=== PATIENT | female | born 1955 | race Caucasian/White ===

== ENCOUNTER 2019-12-06 10:46 | Emergency (ER) | payer MEDICARE, SELFPAY ==
[2019-12-06 11:33] VITALS: BP 101/51; PULSE 83; RESP 18; TEMP 37.5; O2SAT 100
--- NOTE | 2019-12-06 12:08 | ED.GENADULT ---
HPI - General Adult General Chief complaint: Upper Respiratory Infection Stated complaint: chest congestion Time Seen by Provider: 12/06/19 12:08 Source: patient and RN notes reviewed Mode of arrival: ambulatory Limitations: no limitations History of Present Illness HPI narrative: 64-year-old female presents with complains of dry cough and head congestion for 1 day. Ibuprofen and Tessalon Perles without relief. Symptoms increased over night with hoarseness. Lorena says she wants an anti-viral medication as instructed per the news to protect her from the Coronavirus. Lorena refuses any testing today saying she has no flu-like symptoms just following news recommendations. Constant dry cough/intermittent productive cough (green-yellow phlegm). No rhinorrhea. Nasal congestion. Mild sore throat. Exacerbating factors consist of coughing. No pain with swallowing. No high fevers, drooling, neck or throat swelling. No chest pain, wheezing, or shortness of breath. Denies nausea, vomiting, and abdominal pain. Tolerating liquids well. Remains active. Some parts of this dictation were generated by voice recognition software and may contain typographical and/or grammatical inaccuracies. Related Data Home Medications Medication Instructions Recorded Confirmed diclofenac sodium PO 12/06/19 gabapentin 12/06/19 Allergies Allergy/AdvReac Type Severity Reaction Status Date / Time venom-wasp Allergy Intermediate Swelling Verified 12/09/19 15:37 bee venom protein (honey bee) Allergy Unknown Swelling Verified 12/09/19 15:37 Iodinated Contrast Media Allergy Unknown SHORTNESS Verified 12/06/19 11:38 OF BREATH ioversol Allergy Unknown swelling Verified 12/09/19 15:37 itching mold Allergy Unknown Sneezing Verified 12/09/19 15:37 nickel Allergy Unknown unsure Verified 12/09/19 15:37 Penicillins Allergy Unknown Unknown Verified 12/06/19 11:38 RED WINE Allergy Mild oraL Uncoded 12/09/19 15:37 sensitivity BUTORPHANOL TARTRATE Allergy Unknown SHORTNESS Uncoded 12/06/19 11:38 OF BREATH Review of Systems Review of Systems: Narrative: CONSTITUTIONAL: Denies fever, sweats, chills, fatigue. EYES: Denies visual changes, redness, discharge. ENT: Complains of congestion, sore throat, hoarseness. Denies rhinorrhea, otalgia. CARDIOVASCULAR: Denies chest pain, palpitations, edema. RESPIRATORY: Denies dyspnea, wheezing. Complains of dry cough, intermittent productive cough. GASTROINTESTINAL: Denies abdominal pain, nausea, vomiting, diarrhea. GENITOURINARY: Denies dysuria, hematuria, abnormal discharge. SKIN: Denies rash or itching. MUSCULOSKELETAL: Denies acute back pain, joint pain, or myalgia. NEUROLOGIC: Denies numbness or focal weakness. PSYCHIATRIC: Denies anxiety or depression. All other systems reviewed are negative, except as documented in HPI and below. [facility] Past Medical History Medical History (Updated 12/09/19 @ 15:48 by Chelsea Gil CMA) Arthritis Cardiac arrhythmia History of Mtz's palsy Mitral valve prolapse Ovarian cyst Primary osteoarthritis of left hip Surgical History Surgical History History of cryosurgery History of lumpectomy of left breast Family History Family History Mother Family history of osteoporosis Family history of malignant neoplasm of ovary Father Cerebrovascular accident Family history of arthritis Family history of atrial fibrillation Other Acute myocardial infarction Asthma Diabetes mellitus Family history of chronic obstructive pulmonary disease Social History Social History (Updated 12/09/19 @ 15:42 by Chelsea Gil CMA) Smoking status: Never smoker Second hand tobacco smoke exposure: No Alcohol intake: current Alcohol use details: once a month Substance use: never Living arrangements: with family Occupation/Education: r
== END 2019-12-06 12:30 | disposition home or self-care (01) ==
PROVIDERS: Emergency Provider Nurse Practitioner Family
DX: J06.9 Acute upper respiratory infection, unspecified (principal)
CPT/HCPCS: 99213; G0463

== ENCOUNTER → 2019-12-13 12:11 | Outpatient (CLI) | payer MEDICARE, SELFPAY ==
--- NOTE | ~2019-12-13 | XR_ITS ---
EXAMINATION: SACRUM/COCCYX DATE: 12/13/2019 12:33 INDICATION: Low back pain TECHNIQUE: Three views sacrum/coccyx FINDINGS: No prior studies for comparison. There is no displaced fracture of the sacrum. The coccyx demonstrates overall normal morphology with out acute angulation.There are degenerative changes of the hips, partially visualized. There is ostei tis pubis. IMPRESSION: 1. No acute displaced osseous abnormality of the sacrum. Suspicion for occult or nondisplaced sacral fracture can either be evaluated with CT or MRI. 2. Grossly normal morphology to the coccyx without acute angulation. However, due to the wide range of normal variation of the coccyx, acute injury would be best evaluated by clinical examination and patient's symptoms. Reviewed, dictated and finalized at location A.
--- NOTE | ~2019-12-13 | XR_ITS ---
EXAMINATION: XR lumbar spine 2-3V EXAM DATE: 12/13/2019 12:31 INDICATION: Low back pain with pain radiating down left leg posteriorly, symptoms intermittent. TECHNIQUE: Lumber spine frontal, lateral, lateral L5-S1 projections for interpretation. There is no prior study for comparison. FINDINGS: There are no acute fractures identified. Sacrum, sacroiliac joints, sacral arcuate lines are intact. Mild lumbar levoscoliosis. There is moderate lumbar facet arthropathy. The vertebral bodi es are aligned in the AP dimension. There is mild to moderate disc lumbar disc disease. There is 2-3 mm retrolisthesis L2 on L3 and L3 on L4. IMPRESSION: 1. No acute lumbar findings. 2. Moderate facet arthropathy, mild to moderate disc disease. Reviewed, dictated and finalized at location A.
== END ==
PROVIDERS: PCP Family Medicine; Visit Provider Family Medicine
DX: M54.16 Radiculopathy, lumbar region (principal); M53.3 Sacrococcygeal disorders, not elsewhere classified; M12.88 Other specific arthropathies, not elsewhere classified, other specified site
CPT/HCPCS: 72100; 72220

== ENCOUNTER → 2020-12-08 11:50 | Outpatient (CLI) | payer MEDICARE, SELFPAY ==
--- NOTE | ~2020-12-08 | XR_ITS ---
EXAMINATION: XR hip BI 2V w AP pelvis DATE: 12/08/2020 12:52 INDICATION: Chronic bilateral hip pain TECHNIQUE: Anteroposterior view of the pelvis and anteroposterior and frog-leg lateral views of the l eft hip and anteroposterior and frog-leg lateral views of the right hip and were obtained. COMPARISON: None. FINDINGS: Normal alignment at the bilateral hips. No fracture or suspected avascular necrosis. Osteoarthritis a t the bilateral hips, moderate to severe on the left and mild on the right. Minimal bilateral sacroil iac osteoarthritis. Numerous phleboliths in the left hemipelvis. IMPRESSION: 1. Mild right and moderate to severe left hip osteoarthritis. Reviewed, dictated and finalized at location B. G[facility] LABOR RELATIONS
--- NOTE | ~2020-12-08 | US_ITS ---
EXAMINATION: US thyroid DATE: 12/08/2020 12:11 INDICATION: Goiter. TECHNIQUE: Multiple ultrasound images of the thyroid were obtained. COMPARISON: None. FINDINGS: The right thyroid lobe measures 4.2 x 1.4 x 1.5 cm. The left thyroid lobe measures 3.8 x 1.5 x 1.4 c m. There are multiple nodules in the thyroid measuring 4 mm or less. In the left thyroid lobe, there is a 6 mm solid, hypoechoic, [id number]-[id number] nodule with ill-defined margin without echogenic foci ( TI-RADS TR4). IMPRESSION: 1. Small thyroid nodules, likely not clinically significant. No follow-up is needed. Reviewed, dictated and finalized at location A. APPLICATION ARCHITECT IMPRESSION: 1. Small thyroid nodules, likely not clinically significant. No follow-up is ne eded.
== END ==
PROVIDERS: PCP Family Medicine; Visit Provider Family Medicine
DX: E01.0 Iodine-deficiency related diffuse (endemic) goiter (principal); M16.0 Bilateral primary osteoarthritis of hip
CPT/HCPCS: 73521; 76536

== ENCOUNTER → 2021-01-22 01:44 | Outpatient (CLI) | payer MEDICARE, SELFPAY ==
[2021-01-22 19:04] LABS: SARS-CoV-2 RNA PCR Negative
== END ==
PROVIDERS: PCP Family Medicine; Visit Provider Internal Medicine Gastroenterology
DX: Z01.812 Encounter for preprocedural laboratory examination (principal); Z20.822 Contact with and (suspected) exposure to COVID-19
CPT/HCPCS: C9803; U0003; U0005

== ENCOUNTER 2021-01-25 02:05 | Day surgery (SDC) | payer MEDICARE, SELFPAY ==
[2021-01-18 10:23] VITALS: BMI 25.7
[2021-01-25 08:49] VITALS: BP 118/73; PULSE 101; RESP 18; TEMP 36.4; O2SAT 97; BMI 26.6
[2021-01-25] MEDS: LACTATED RINGERS 1,000 ML 150 ML IV CONT (09:01)
--- NOTE | 2021-01-25 09:10 | WPDANESEPPF ---
Anes - Initial Pre Proc Eval Procedure: Operation Date: 01/25/21 09:45 Proposed Procedures p Screening Colonoscopy - Car Avalos DO Date/Time: 01/25/21 09:10 Surgeon: Car Avalos DO Pre Op Diagnosis: neoplasm screening Patient Data Age: 65 Gender: F Height: 5 ft 5 in Weight: 72.8 kg Last Vital Signs Temp 36.4 C L 01/25/21 08:49 Pulse 101 H 01/25/21 08:49 Resp 18 01/25/21 08:49 BP 118/73 01/25/21 08:49 Pulse Ox 97 01/25/21 08:49 Allergies Allergy/AdvReac Type Severity Reaction Status Date / Time bee venom protein (honey bee) Allergy Severe Swelling Verified 01/18/21 10:28 Iodinated Contrast Media Allergy Severe Anaphylactic Verified 01/25/21 08:49 Shock ioversol Allergy Severe Anaphylactic Verified 01/25/21 08:49 Shock Penicillins Allergy Severe Anaphylactic Verified 01/25/21 08:49 Shock venom-wasp Allergy Severe Swelling Verified 01/25/21 08:49 mold Allergy Intermediate Sneezing Verified 01/25/21 08:49 nickel Allergy Intermediate Rash Verified 01/25/21 08:49 propofol Allergy Chest Pain Verified 01/25/21 08:49 BUTORPHANOL TARTRATE Allergy Severe SHORTNESS Uncoded 01/25/21 08:49 OF BREATH RED WINE Allergy Mild oraL Uncoded 01/25/21 08:49 sensitivity Home Medications Medication Instructions Recorded Confirmed Type diclofenac sodium 75 mg PO Q12H PRN 12/06/19 01/25/21 History cholecalciferol (vitamin D3) 25 25 mcg PO DAILY 11/29/20 01/25/21 History mcg (1,000 unit) capsule multivitamin 1 tablet PO DAILY 11/29/20 01/25/21 History Tumeric 1 cap PO DAILY 01/18/21 01/25/21 History calcium carbonate [Calcium 500] 500 mg PO DAILY 01/18/21 01/25/21 History gabapentin 100 mg PO TID PRN 01/18/21 01/25/21 History lactase [Lactaid] 5,000 unit PO PRN PRN 01/18/21 01/25/21 History loratadine [Claritin] 10 mg PO DAILY PRN 01/18/21 01/25/21 History plant stanol teodora [Cholest Off] 450 mg PO DAILY 01/18/21 01/25/21 History zinc 50 mg PO DAILY 01/18/21 01/25/21 History Patient hx anesthesia problems: none Family hx anesthesia problems: none [facility] Past Medical History Medical History Arthritis Cardiac arrhythmia History of Mtz's palsy Mitral valve prolapse Ovarian cyst Primary osteoarthritis of left hip Surgical History Surgical History History of cryosurgery History of lumpectomy of left breast Family History Family History Mother Family history of osteoporosis Family history of malignant neoplasm of ovary Father Cerebrovascular accident Family history of arthritis Family history of atrial fibrillation Other Acute myocardial infarction Asthma Diabetes mellitus Family history of chronic obstructive pulmonary disease Social History Social History Smoking status: Never smoker Second hand tobacco smoke exposure: No Alcohol intake: current Drinks per week: 1 Substance use: never Substance use type: does not use Living arrangements: with family Gender identity (if verbalized by the patient): Female Spiritual care concerns: No Agree to blood products: Yes Anes - Eval Final PreProcedure Day of Procedure 01/25/21 09:10 Patient weight: overweight Heart: regular rate and rhythm Lungs: clear to auscultation Airway: Mallampati scale class II Neurological: alert and oriented Last oral intake: >/= 8 hours ASA classification: III Emergent: no Anesthetic plan: proceed Anesthesia type and monitoring: general (will use etomidate due to Pt's insistence she had chest tightness 7 years ago during propofol induction) GIVS and standard monitoring Informed Consent: The patient's anesthetic plan and its attendant risks and benefits were discussed with the patient/family/POA. Questions were solicited and answers provided to the
--- NOTE | 2021-01-25 09:18 | WPDGICN ---
GI Consult Note Consult date/time: 01/25/21 09:18 HPI: Reason for visit colonoscopy. This very pleasant lady seen in consultation request of the primary care physician. Impression: Screening Colonoscopy. The patient has a family history of colon cancer. Mtz's palsy. Degenerative joint disease. Mitral valve prolapse. Recommendation: Colonoscopy. History: This very pleasant lady has a negative GI review systems. She is here for screening colonoscopy. She has a family history colon cancer. Physical examination: General: very pleasant patient in no acute distress. HEENT: Head was normocephalic sclerae is clear mouth without masses neck was supple. Heart: Rate rhythm regular without S3 or S4. Lungs: CTA. Abdomen: Soft with no guarding or rigidity. Bowel sounds were active. Neurologic: Cranial nerves 2 through 12 intact. No focal defects. No clonus. Musculoskeletal system: Revealed no joint tenderness or swelling no muscle atrophy. Extremities: Reveal no significant edema. Skin: Warm and dry with normal turgor. Mental status: intact. Patient is alert and oriented. Review of Systems Review of Systems: All systems reviewed & are unremarkable except as noted in HPI and below PMFSH Past Medical History Medical History Arthritis Cardiac arrhythmia History of Mtz's palsy Mitral valve prolapse Ovarian cyst Primary osteoarthritis of left hip Surgical History Surgical History History of cryosurgery History of lumpectomy of left breast Family History Family History Mother Family history of osteoporosis Family history of malignant neoplasm of ovary Father Cerebrovascular accident Family history of arthritis Family history of atrial fibrillation Other Acute myocardial infarction Asthma Diabetes mellitus Family history of chronic obstructive pulmonary disease Social History Social History Smoking status: Never smoker Second hand tobacco smoke exposure: No Alcohol intake: current Drinks per week: 1 Substance use: never Substance use type: does not use Living arrangements: with family Gender identity (if verbalized by the patient): Female Spiritual care concerns: No Agree to blood products: Yes Meds Home Medications and Allergies Home Medications Medication Instructions Recorded Confirmed Type diclofenac sodium 75 mg PO Q12H PRN 12/06/19 01/25/21 History cholecalciferol (vitamin D3) 25 25 mcg PO DAILY 11/29/20 01/25/21 History mcg (1,000 unit) capsule multivitamin 1 tablet PO DAILY 11/29/20 01/25/21 History Tumeric 1 cap PO DAILY 01/18/21 01/25/21 History calcium carbonate [Calcium 500] 500 mg PO DAILY 01/18/21 01/25/21 History gabapentin 100 mg PO TID PRN 01/18/21 01/25/21 History lactase [Lactaid] 5,000 unit PO PRN PRN 01/18/21 01/25/21 History loratadine [Claritin] 10 mg PO DAILY PRN 01/18/21 01/25/21 History plant stanol teodora [Cholest Off] 450 mg PO DAILY 01/18/21 01/25/21 History zinc 50 mg PO DAILY 01/18/21 01/25/21 History Allergies Allergy/AdvReac Type Severity Reaction Status Date / Time bee venom protein (honey bee) Allergy Severe Swelling Verified 01/18/21 10:28 Iodinated Contrast Media Allergy Severe Anaphylactic Verified 01/25/21 08:49 Shock ioversol Allergy Severe Anaphylactic Verified 01/25/21 08:49 Shock Penicillins Allergy Severe Anaphylactic Verified 01/25/21 08:49 Shock venom-wasp Allergy Severe Swelling Verified 01/25/21 08:49 mold Allergy Intermediate Sneezing Verified 01/25/21 08:49 nickel Allergy Intermediate Rash Verified 01/25/21 08:49 propofol Allergy Chest Pain Verified 01/25/21 08:49 BUTORPHANOL TARTRATE Allergy Severe SHORTNESS Uncoded 01/25/21 08:49 OF BREATH RED WINE A
[2021-01-25 09:53] VITALS: BP 135/89; PULSE 81; RESP 23; O2SAT 100
[2021-01-25 10:03] VITALS: BP 122/69; PULSE 70; RESP 19; O2SAT 100
[2021-01-25 10:13] VITALS: BP 119/77; PULSE 67; RESP 26; O2SAT 100
--- NOTE | 2021-01-25 10:14 | SUR.PHASEII ---
PT C/O NUMBNESS AND TINGLING THAT WAS DISCUSSED NORMAL SIDE EFFECTS ETOMIDATE, DR MUNOZ WAS NOTIFIED AND SPOKE WITH THE PT AND SPOUSE, REASSURING THEM THAT WILL RESIDE
[2021-01-25 10:23] VITALS: BP 128/69; PULSE 57; RESP 24; O2SAT 100
[2021-01-25 10:33] VITALS: BP 121/65; PULSE 54; RESP 17; O2SAT 100
== END 2021-01-25 10:45 | disposition home or self-care (01) ==
PROVIDERS: PCP Family Medicine; Visit Provider Internal Medicine Gastroenterology
PROC: 0DJD8ZZ Inspection of Lower Intestinal Tract, Via Natural or Artificial Opening Endoscopic (ICD-10-PCS; CPT 45378; principal; 2021-01-25 09:45)
DX: Z12.11 Encounter for screening for malignant neoplasm of colon (principal); Z80.0 Family history of malignant neoplasm of digestive organs; I34.1 Nonrheumatic mitral (valve) prolapse; M19.90 Unspecified osteoarthritis, unspecified site
CPT/HCPCS: G0105; C9803; J7120; U0003; U0005

== ENCOUNTER → 2022-01-22 11:11 | Outpatient (CLI) | payer MEDICARE, SELFPAY ==
--- NOTE | ~2022-01-22 | US_ITS ---
EXAMINATION: US thyroid DATE: 01/22/2022 11:29 INDICATION: Thyroid nodule. Follow-up. TECHNIQUE: Multiple ultrasound images of the thyroid were obtained. COMPARISON: Thyroid ultrasound 12/08/2020 FINDINGS: The right thyroid lobe measures 3.8 x 1.7 x 1.9 cm. The left thyroid lobe measures 4.8 x 1.7 x 1.4 c m. In the left thyroid lobe, there is a 5 mm solid, hypoechoic, jqgid-[id number]-lhqr nodule with smooth m argin without echogenic foci (TI-RADS TR4). There are multiple nodules in the thyroid measuring up to 4 mm. IMPRESSION: 1. Small thyroid nodules, likely not clinically significant. No follow-up is needed. Reviewed, dictated and finalized at location B. IMPRESSION: 1. Small thyroid nodules, likely not clinically significant. No follow-up is ne eded.
== END ==
PROVIDERS: PCP Family Medicine; Visit Provider Family Medicine
DX: E04.2 Nontoxic multinodular goiter (principal)
CPT/HCPCS: 76536

== ENCOUNTER 2022-02-11 12:46 | Outpatient (CLI) | payer MEDICARE, SELFPAY ==
--- NOTE | 2022-02-11 13:07 | ECHO_ITS ---
Patient Info Name: Lorena Sommer Age: 66 years : 1955 Gender: Female Ht: 65 in Wt: 155 lbs BSA: 1.81 m2 HR: 93 bpm BP: 132 / 84 mmHg Heart Rhythm: Sinus Rhythm Exam Date: 02/11/2022 1:24 PM Exam Location: [facility] Patient Status: Outpatient Admit Date: 02/11/2022 Staff Ordering Physician: Ileana Flores DO Heating And Refrigeration Inspector: Edis Shankar RDCS, RT Attending Provider: Ileana Flores DO Referring Physician: Mark FUNES; Exam Type: CA echo doppler color flow Study Info Indications I34.1 - Nonrheumatic mitral (valve) prolapse Complete two-dimensional, color flow and Doppler transthoracic echocardiogram is performed. Strain analysis performed. Summary 1. Complete two-dimensional, color flow and Doppler transthoracic echocardiogram is performed. 2. Left ventricular chamber dimension is normal. 3. Left ventricular systolic function is normal, estimated at 60-65%. 4. There is no increased left ventricular wall thickness. 5. The left ventricular diastolic function is grade I diastolic dysfunction. 6. Global longitudinal strain is normal at -23 %. 7. The mitral valve has very mild bileaflet prolapse. 8. There is no mitral valve regurgitation. 9. There is no aortic valve stenosis. 10. There is mild tricuspid valve regurgitation. 11. No pulmonary hypertension, estimated pulmonary arterial systolic pressure is 28 mmHg. Left Ventricle Left ventricular chamber dimension is normal. Left ventricular systolic function is normal, estimated at 60-65%. There is no increased left ventricular wall thickness. The left ventricular diastolic function is grade I diastolic dysfunction. Global longitudinal strain is normal at -23 %. Right Ventricle Right ventricular chamber dimension is normal. Right ventricular systolic function is normal. Left Atria Left atrial chamber dimension is normal. Right Atria Right atrial chamber dimension is normal. Aortic Valve The aortic valve is not well visualized. There is no aortic valve stenosis. There is no aortic valve regurgitation. Pulmonic Valve The pulmonic valve is not well visualized. Mitral Valve The mitral valve has very mild bileaflet prolapse. There is no mitral valve regurgitation. The mitral valve annulus is mildly calcified. Tricuspid Valve The tricuspid valve leaflets are normal. There is mild tricuspid valve regurgitation. No pulmonary hypertension, estimated pulmonary arterial systolic pressure is 28 mmHg. Pericardium/Pleural The pericardium appears normal. There is small pericardial effusion. Inferior Vena Cava Normal inferior vena cava with >50% collapse upon inspiration consistent with normal right atrial pressure, 5 mmHg. Aorta The aortic root size at the sinus of Valsalva is normal. Left Ventricular Outflow Tract Name Value Normal LVOT 2D LVOT Diameter 1.9 cm LVOT Doppler LVOT Peak Gradient 4 mmHg LVOT Mean Gradient 2 mmHg LVOT VTI 23 cm LVOT VTI/AV VTI Ratio 1.[address]
== END 2022-02-11 12:47 | disposition home or self-care (01) ==
PROVIDERS: PCP Family Medicine; Visit Provider Family Medicine
DX: I34.1 Nonrheumatic mitral (valve) prolapse (principal); I36.1 Nonrheumatic tricuspid (valve) insufficiency
CPT/HCPCS: 93306

== ENCOUNTER → 2022-02-19 13:41 | Outpatient (CLI) | payer MEDICARE, SELFPAY ==
--- NOTE | ~2022-02-19 | DEXA_ITS ---
Bone Density Report Name: FARA IGLESIAS Age: 66 Sex: Female Ethnicity: White Date of : 1955 Indication: postmenopausal; screening for osteoporosis; Referring Provider: Sneha Owusu Study: Bone densitometry was performed. Exam Date: February 19, 2022 Accession number: [id number] Bone Density: Region BMD T-score Z-score Classification AP Spine (L1-L4) 0.968 -0.7 1.2 Normal Femoral Neck (Left) 0.739 -1.0 0.6 Normal Total Hip (Left) 0.843 -0.8 0.5 Normal Femoral Neck (Right) 0.759 -0.8 0.8 Normal Total Hip (Right) 0.841 -0.8 0.5 Normal Total Hip Mean 0.842 -0.8 0.5 Normal World Health Organization criteria for BMD impression classify patients as: Normal (T-score at or above -1.0), Osteopenia (T-score between -1.0 and -2.5), or Osteoporosis (T-score at or below -2.5). 10-year Fracture Risk: FRAX not reported because: All T-scores for Spine Total, Hip Total, Femoral Neck at or above -1.0 Previous Exams: Region Exam Age BMD T-score BMD Change BMD Change Date g/cm2 vs Baseline vs Previous AP Spine(L1-L4) 02/19/2022 66 0.968 -0.7 -0.083* -0.031* 12/28/2018 63 0.998 -0.4 -0.052* 0.020 06/30/2014 58 0.978 -0.6 -0.072* 0.007 08/24/2013 57 0.972 -0.7 -0.079* 0.005 01/31/2011 55 0.966 -0.7 -0.084* -0.084* 02/09/2007 51 1.051 0.0 Total Hip(Left) 02/19/2022 66 0.843 -0.8 -0.048* -0.006 12/28/2018 63 0.849 -0.8 -0.042* -0.046* 06/30/2014 58 0.895 -0.4 0.004 0.001 08/24/2013 57 0.894 -0.4 0.003 0.024 01/31/2011 55 0.870 -0.6 -0.021 -0.021 02/09/2007 51 0.891 -0.4 Total Hip(Right) 02/19/2022 66 0.841 -0.8 -0.005 0.019 12/28/2018 63 0.822 -1.0 -0.024 -0.040* 06/30/2014 58 0.862 -0.7 0.017 -0.023 08/24/2013 57 0.885 -0.5 0.039* 0.036* 01/31/2011 55 0.849 -0.8 0.004 0.004 02/09/2007 51 0.846 -0.8 *Denotes significance at 95% confidence level, LSC for AP Spine = 0.022 g/cm2, LSC for Total Hip = 0.027 g/cm2 Clinical Information Provided by Patient: Has used the following medications: Vitamin D, Calcium, MTV Patient maximum height was 65.75 Menopause Age: 51 Does not regularly consume dairy products Drinks caffeinated beverages Onset of menses at age 12 Number of children
== END ==
PROVIDERS: PCP Family Medicine; Visit Provider Obstetrics & Gynecology
DX: M85.88 Other specified disorders of bone density and structure, other site (principal)
CPT/HCPCS: 77080

== ENCOUNTER → 2023-03-27 13:26 | Outpatient (CLI) | payer MEDICARE, SELFPAY ==
--- NOTE | ~2023-03-27 | US_ITS ---
US thyroid INDICATION: Nontoxic thyroid nodule TECHNIQUE: Real-time sonographic images of the thyroid gland were obtained. COMPARISON: No prior studies for comparison. FINDINGS: The right thyroid lobe measures 4 x 1.4 x 1.5 cm. The left thyroid lobe measures 4.7 x 1.3 x 1.6 cm. There are small bilateral thyroid nodules, largest on the right measuring 4 mm in largest on the left measuring 6 mm. No significant change from prior examination. Normal vascular flow is pre sent. IMPRESSION: 1. Stable bilateral thyroid nodules measuring 6 mm or less, likely benign. No suspicious new or enla rging masses in either lobe to suggest malignancy. Reviewed, dictated and finalized at location L. IMPRESSION: 1. Stable bilateral thyroid nodules measuring 6 mm or less, likely benign. No suspicious new or enlarging masses in either lobe to suggest malignancy.
== END ==
PROVIDERS: PCP Family Medicine; Visit Provider Family Medicine
DX: E04.2 Nontoxic multinodular goiter (principal)
CPT/HCPCS: 76536

== ENCOUNTER 2023-08-07 19:33 | Emergency (ER) | payer MEDICARE, SELFPAY ==
[2023-08-07 19:49] VITALS: BP 124/40; PULSE 79; RESP 18; TEMP 36.5; O2SAT 97
--- NOTE | 2023-08-07 20:08 | ED.EAR ---
HPI - Ear Problem General Chief complaint: Ear Stated complaint: bilateral ear pain and pressure,cough Time Seen by Provider: 08/07/23 19:55 Source: patient, RN notes reviewed and old records reviewed Mode of arrival: ambulatory Limitations: no limitations History of Present Illness HPI Narrative: 67 year old female who presents to [facility] care with complaints of bilateral ear pain with pressure and cough for the past 5 days with right ear of greater discomfort. 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 Patient reports no fevers, chills or body aches, no sore throat, denies any nausea or vomiting or diarrhea,Torres nt reports that she has taken some Diclofenac for her discomfort. MD Complaint: ear pain (bilateral with right of greater itensity) Location: bilateral Severity: moderate Discharge from ear: Reports no Treatment prior to arrival: other (Diclofenac) Related Data Home Medications Medication Instructions Recorded Confirmed cholecalciferol (vitamin D3) 25 25 mcg PO DAILY 11/29/20 08/07/23 mcg (1,000 unit) capsule multivitamin 1 tablet PO DAILY 11/29/20 08/07/23 Tumeric 1 cap PO DAILY 01/18/21 08/07/23 calcium carbonate 500 mg calcium 500 mg PO DAILY 01/18/21 08/07/23 (1,250 mg) chewable tablet (Calcium 500) loratadine 10 mg tablet (Claritin) 10 mg PO DAILY PRN Allergy Symptoms 01/18/21 06/18/22 zinc 50 mg tablet 50 mg PO DAILY 01/18/21 08/07/23 Allergies Allergy/AdvReac Type Severity Reaction Status Date / Time bee venom protein (honey bee) Allergy Severe Swelling Verified 08/07/23 19:56 Iodinated Contrast Media Allergy Severe Anaphylactic Verified 08/07/23 19:56 Shock ioversol Allergy Severe Anaphylactic Verified 08/07/23 19:56 Shock Penicillins Allergy Severe Anaphylactic Verified 08/07/23 19:56 Shock venom-wasp Allergy Severe Swelling Verified 08/07/23 19:56 mold Allergy Intermediate Sneezing Verified 08/07/23 19:56 nickel Allergy Intermediate Rash Verified 08/07/23 19:56 propofol Allergy Chest Pain Verified 08/07/23 19:56 BUTORPHANOL TARTRATE Allergy Severe SHORTNESS Uncoded 04/10/23 15:08 OF BREATH RED WINE Allergy Mild oraL Uncoded 04/10/23 15:08 sensitivity Review of Systems Review of Systems: CONSTITUTIONAL: Denies malaise, chills, sweats, or fever. EYES: Denies visual changes, redness, or discharge. ENT: Reports rhinorrhea, congestion, sinus pain, bilateral otalgia and no sore throat. CARDIOVASCULAR: Denies chest pain, palpitations, or edema. RESPIRATORY: Reports cough.? Denies dyspnea. GASTROINTESTINAL: Denies abdominal pain, nausea, vomiting, diarrhea SKIN: Denies rash or itching. MUSCULOSKELETAL: Denies myalgia. NEUROLOGIC: Reports headache. All systems reviewed & are unremarkable except as noted in HPI and below PMFSH Past Medical History Medical History (Updated 08/08/23 @ 12:40 by Diandra Villarreal NP) Arthritis Cardiac arrhythmia History of Mtz's palsy Mitral valve prolapse Ovarian cyst Primary osteoarthritis of left hip Surgical History Surgical History History of cryosurgery History of lumpectomy of left breast Family History Family History Mother Family history of osteoporosis Family history of malignant neoplasm of ovary Father Cerebrovascular accident Family history of arthritis Family history of atrial fibrillation Other Acute myocardial infarction Asthma Diabetes mellitus Family history of chronic obstructive pulmonary disease Social History Social History Smoking status: Never smoker Second hand tobacco smoke exposure: No Alcohol intake: current Drinks per week: 1 Alcohol use details: white wine
== END 2023-08-07 20:20 | disposition home or self-care (01) ==
PROVIDERS: Emergency Provider Registered Nurse; PCP Family Medicine
DX: H66.91 Otitis media, unspecified, right ear (principal); R05.9 Cough, unspecified; Z79.899 Other long term (current) drug therapy
CPT/HCPCS: 99213; G0463

== ENCOUNTER 2024-03-09 14:35 | Emergency (ER) | payer MEDICARE, SELFPAY ==
[2024-03-09 14:45] VITALS: BP 100/66; PULSE 106; RESP 16; TEMP 36.8; O2SAT 97
--- NOTE | 2024-03-09 15:01 | ED.FEMALEGU ---
HPI - Female Genitourinary General Chief complaint: Urogenital-Female Stated complaint: uti symptoms Time Seen by Provider: 03/09/24 14:57 Source: patient and RN notes reviewed Mode of arrival: ambulatory Limitations: no limitations History of Present Illness HPI Narrative: 68-year-old female presents for dysuria, frequency that started yesterday. She denies fever, body aches, chills, sweats, nausea, vomiting, back pain, abdominal she reports history of UTIs but she has had 1 in a long time. MD elicited complaint: UTI Related Data Home Medications Medication Instructions Recorded Confirmed cholecalciferol (vitamin D3) 25 25 mcg PO DAILY 11/29/20 03/09/24 mcg (1,000 unit) capsule multivitamin 1 tablet PO DAILY 11/29/20 03/09/24 Tumeric 1 cap PO DAILY 01/18/21 03/09/24 calcium carbonate (Calcium 500) 500 mg PO DAILY 01/18/21 03/09/24 loratadine 10 mg tablet (Claritin) 10 mg PO DAILY PRN Allergy Symptoms 01/18/21 03/09/24 zinc 50 mg tablet 50 mg PO DAILY 01/18/21 03/09/24 diclofenac sodium 75 mg 75 mg PO BID PRN arthritis 03/09/24 03/09/24 tablet,delayed release gabapentin 100 mg tablet 100 mg PO PRN PRN sciatica 03/09/24 03/09/24 Allergies Allergy/AdvReac Type Severity Reaction Status Date / Time Iodinated Contrast Media Allergy Severe Anaphylactic Verified 03/09/24 14:39 Shock ioversol Allergy Severe Anaphylactic Verified 03/09/24 14:39 Shock Penicillins Allergy Severe Anaphylactic Verified 03/09/24 14:39 Shock propofol AdvReac Severe Chest Pain Verified 03/09/24 14:39 bee venom protein (honey bee) AdvReac Intermediate Swelling Verified 03/09/24 14:39 venom-wasp AdvReac Intermediate Swelling Verified 03/09/24 14:39 mold AdvReac Mild Sneezing Verified 03/09/24 14:39 nickel AdvReac Mild Rash Verified 03/09/24 14:39 BUTORPHANOL TARTRATE AdvReac Severe SHORTNESS Uncoded 03/09/24 14:39 OF BREATH RED WINE AdvReac Mild oraL Uncoded 03/09/24 14:39 sensitivity Review of Systems Review of Systems: CONSTITUTIONAL: Denies malaise, chills, sweats, or fever. CARDIOVASCULAR: Denies chest pain, palpitations, or edema. RESPIRATORY: Denies cough or dyspnea. GASTROINTESTINAL: Denies abdominal pain, nausea, vomiting, diarrhea GENITOURINARY: Reports dysuria, frequency, urgency. Denies flank pain or hematuria. SKIN: Denies rash or itching. MUSCULOSKELETAL: Denies back pain or myalgia. All systems reviewed & are unremarkable except as noted in HPI and below PMFSH Past Medical History Medical History (Updated 03/09/24 @ 15:04 by Sugar Marcos NP) Arthritis Cardiac arrhythmia History of Mtz's palsy Mitral valve prolapse Ovarian cyst Primary osteoarthritis of left hip URI (upper respiratory infection) Surgical History Surgical History History of cryosurgery History of lumpectomy of left breast Family History Family History Mother Family history of osteoporosis Family history of malignant neoplasm of ovary Father Cerebrovascular accident Family history of arthritis Family history of atrial fibrillation Other Acute myocardial infarction Asthma Diabetes mellitus Family history of chronic obstructive pulmonary disease Social History Social History (Updated 10/15/23 @ 13:00 by Chelo Escudero CMA) Smoking status: Never smoker Second hand tobacco smoke exposure: No Alcohol intake: current Drinks per week: 1 Alcohol use details: white wine Substance use: never Substance use type: does not use Do You Feel Safe in your Home?: Yes Lack of Transportation: No Lack of Food: Never True Current Housing: I Have Housing Concerned About Future Housing: No Difficulty Paying Gas/Electric Bills: No Difficulty Paying for Meds: No Currently Unemployed: No Education: Don't Know Difficulty w/ Childcare or Family Care: No Living arrangements: with f
== END 2024-03-09 15:14 | disposition home or self-care (01) ==
PROVIDERS: Emergency Provider Nurse Practitioner; PCP Family Medicine
DX: N39.0 Urinary tract infection, site not specified (principal); B96.20 Unspecified Escherichia coli [E. coli] as the cause of diseases classified elsewhere; M19.90 Unspecified osteoarthritis, unspecified site; I34.1 Nonrheumatic mitral (valve) prolapse; M16.12 Unilateral primary osteoarthritis, left hip
CPT/HCPCS: 81003; 87077; 87086; 87088; 87186; 99213; G0463

== ENCOUNTER 2024-05-18 10:55 | Outpatient (CLI) | payer MEDICARE, SELFPAY ==
--- NOTE | ~2024-05-18 | US_ITS ---
EXAMINATION: US thyroid DATE: 05/18/2024 11:19 INDICATION: Iron deficiency related diffuse endemic goiter. TECHNIQUE: Multiple ultrasound images of the thyroid were obtained. COMPARISON: Thyroid ultrasound 03/27/2023 FINDINGS: The right thyroid lobe measures 4.0 x 1.2 x 1.5 cm. The left thyroid lobe measures 5.0 x 1.4 x 1.7 c m. In the right thyroid lobe, there is a 6 mm solid, hypoechoic, wider than tall nodule with smooth margin without echogenic foci (TI-RADS TR4). In the left thyroid lobe, there is a 5 mm solid, very hy poechoic, wider than tall nodule with smooth margin without echogenic foci (TR4). IMPRESSION: 1. Small thyroid nodules, likely not clinically significant. No follow-up is needed. Reviewed, dictated and finalized at location A. IMPRESSION: 1. Small thyroid nodules, likely not clinically significant. No follow-up is ne eded.
== END 2024-05-18 10:56 ==
LOC: MICIMG 10:56
PROVIDERS: PCP Nurse Practitioner Family; Visit Provider Nurse Practitioner Family
DX: E04.2 Nontoxic multinodular goiter (principal)
CPT/HCPCS: 76536

== ENCOUNTER 2024-05-26 13:55 | Outpatient (CLI) | payer MEDICARE, SELFPAY ==
--- NOTE | ~2024-05-26 | DEXA_ITS ---
Bone Density Report Name: FARA IGLESIAS Age: 68 Sex: Female Ethnicity: White Date of : 1955 Indication: postmenopausal; screening for osteoporosis; prior fracture; Referring Provider: LENNY KANG Study: Bone densitometry was performed. Exam Date: May 26, 2024 Accession number: [id number] Bone Density: Region BMD T-score Z-score Classification AP Spine(L1-L4) 0.959 -0.8 1.3 Normal Femoral Neck (Left) 0.822 -0.2 1.5 Normal Total Hip (Left) 0.865 -0.6 0.8 Normal Femoral Neck (Right) 0.835 -0.1 1.6 Normal Total Hip (Right) 0.869 -0.6 0.9 Normal Femoral Neck Mean 0.828 -0.2 1.6 Normal Total Hip Mean 0.867 -0.6 0.9 Normal World Health Organization criteria for BMD impression classify patients as: Normal (T-score at or above -1.0), Osteopenia (T-score between -1.0 and -2.5), or Osteoporosis (T-score at or below -2.5). 10-year Fracture Risk: FRAX not reported because: All T-scores for Spine Total, Hip Total, Femoral Neck at or above -1.0 Clinical Information Provided by Patient: Has had a low trauma fracture Has used the following medications: Vitamin D, Calcium, MULTI Patient maximum height was 66 Menopause Age: 50 No regular weight bearing exercise Does not regularly consume dairy products Drinks caffeinated beverages Onset of menses at age 13 Number of children 3 Impression: The patient has normal bone mass. The patient has risk factors, including: previous fracture. Discussion: BONE DENSITY IS ABOVE THE MINIMUM DESIRABLE LEVEL AT ALL SKELETAL SITES TESTED. This patient?s bone mineral density is above the minimum desirable level (T-score -1.0 or better) at all sites measured. The patient should follow a healthful lifestyle (good nutrition with adequate calcium and vitamin D, and appropriate weight-bearing exercise). Follow-Up: Consider repeating this study in 5 years or sooner if there is some new clinical indication. Reported by: Dr. Santi Cronin on 05/26/2024 2:24:00 PM. Reviewed, dictated and finalized at location [facility]
== END 2024-05-26 13:56 | disposition home or self-care (01) ==
LOC: CHSIMG 13:57
PROVIDERS: PCP Nurse Practitioner Family; Visit Provider Nurse Practitioner Family
DX: Z78.0 Asymptomatic menopausal state (principal)
CPT/HCPCS: 77080